=== PATIENT | male | born 1930 | race Caucasian/White ===

== ENCOUNTER 2017-07-21 16:31 | Emergency (ER) | payer MEDICARE ==
[~2017-07-21] VITALS: Ht 167.6 cm; Wt 90.9 kg
[2017-07-21] MEDS ORDERED: MIRALAX PO (17:06)
[2017-07-21] MEDS ORDERED: NITR.4 SL (17:06)
[2017-07-21] MEDS ORDERED: GABA-531 PO (17:06)
[2017-07-21] MEDS ORDERED: DICL2100G TP (17:06)
[2017-07-21] MEDS ORDERED: METO-558 PO (17:06)
[2017-07-21] MEDS ORDERED: QUET25TA PO (17:06)
[2017-07-21] MEDS ORDERED: TELM40 PO (17:06)
[2017-07-21] MEDS ORDERED: SERT50TA12 PO (17:06)
[2017-07-21] MEDS ORDERED: ATOR20TA86 PO (17:06)
[2017-07-21] MEDS ORDERED: CLOP75 PO (17:06)
[2017-07-21 17:17] LABS: BASOPHILS % (AUTO) 0.6 % (0.0-2.0); EOSINOPHILS % (AUTO) 1.9 % (1.0-6.0); HEMATOCRIT 42.1 % (41-53); HEMOGLOBIN 14.7 g/dL (13.5-17.5); LYMPHOCYTES # (AUTO) 0.9 K/uL (1.0-4.8); LYMPHOCYTES % (AUTO) 13.7 % (22.0-44.0); MEAN CORPUSCULAR HEMOGLOBIN 32.8 pg (26.0-34.0); MEAN CORPUSCULAR HGB CONC 34.9 G/dL (31.0-37.0); MEAN CORPUSCULAR VOLUME 94 fL (80-100); MONOCYTES # (AUTO) 0.6 K/uL (0.1-1.0); MONOCYTES % (AUTO) 9.3 % (2.0-9.0); NEUTROPHILS % (AUTO) 74.5 % (40.0-70.0); PLATELET COUNT (AUTO) 156 K/uL (150-450); RED BLOOD CELL COUNT(AUTO) 4.48 MIL/uL (4.50-5.90); RED CELL DISTRIBUTION WIDTH 14.6 % (11.5-14.5)
[2017-07-21 17:27] LABS: ANION GAP 13 mmol/L (8-16); CALCIUM, TOTAL 8.3 mg/dL (8.8-10.5); CARBON DIOXIDE 21 mmol/L (22-29); CHLORIDE 108 mmol/L (98-107); CREATININE 1.28 mg/dL (0.60-1.30); GLOMERULAR FILTR. RATE CALC 53 mL/min (>60); GLUCOSE,RANDOM 131 mg/dL (70-110); POTASSIUM 4.5 mmol/L (3.5-5.1); SODIUM SERUM 142 mmol/L (136-145); UREA NITROGEN, BLOOD 29 mg/dL (7-18)
[2017-07-21 17:30] LABS: PROTHROMBIN TIME 10.9 SEC (9.4-11.6)
[2017-07-21 17:33] LABS: B-TYPE NATRIURETIC PEPTIDE 55 pg/mL (0-100)
[2017-07-21 17:52] LABS: ALANINE AMINOTRANSFERASE 40 U/L (12-78); ALBUMIN 3.7 g/dL (3.4-5.0); ALKALINE PHOSPHATASE 88 U/L (46-116); ASPARTATE AMINOTRANSFERASE 19 U/L (15-37); BILIRUBIN,TOTAL 0.5 mg/dL (0.1-1.0); CREATINE KINASE MB 2.7 ng/mL (0-5); CREATINE KINASE, TOTAL 110 U/L (39-308); TOTAL PROTEIN, SERUM 6.6 g/dL (6.4-8.2)
[2017-07-21 18:33] LABS: APPEARANCE,URINE CLEAR (CLEAR); BILIRUBIN,URINE NEGATIVE (NEGATIVE); GLUCOSE, URINE (UA) NEGATIVE (NEGATIVE); KETONES,URINE NEGATIVE (NEGATIVE); LEUKOCYTE ESTERASE ,URINE NEGATIVE (NEGATIVE); NITRATE,URINE NEGATIVE (NEGATIVE); OCCULT BLOOD,URINE NEGATIVE (NEGATIVE); PH,URINE 5.5 (5.0-8.0); PROTEIN,URINE NEGATIVE (NEGATIVE)
[2017-07-21 22:00] VITALS: BP 118/64
== END 2017-07-21 22:13 | disposition home or self-care (01) ==
LOC: EMS 16:32
DX: R07.9 Chest pain, unspecified (principal); J44.9 Chronic obstructive pulmonary disease, unspecified; K21.9 Gastro-esophageal reflux disease without esophagitis; I10 Essential (primary) hypertension
CPT/HCPCS: 93005; 99285